=== PATIENT | male | born 1950 | race Caucasian/White ===

== ENCOUNTER → 2020-03-15 09:21 | Outpatient (CLI) | payer MEDICARE, SELFPAY | PROVIDERS: PCP Internal Medicine Geriatric Medicine; Visit Provider Specialist | DX: N39.0 Urinary tract infection, site not specified (principal); N40.3 Nodular prostate with lower urinary tract symptoms; R97.20 Elevated prostate specific antigen [PSA]; N52.9 Male erectile dysfunction, unspecified | CPT/HCPCS: 51798; 81002; 87086; 99214 ==

== ENCOUNTER → 2020-04-28 11:27 | Outpatient (CLI) | payer MEDICARE, SELFPAY | PROVIDERS: PCP Internal Medicine Geriatric Medicine; Visit Provider Specialist | DX: N39.0 Urinary tract infection, site not specified (principal); R97.20 Elevated prostate specific antigen [PSA]; N40.3 Nodular prostate with lower urinary tract symptoms; N52.9 Male erectile dysfunction, unspecified | CPT/HCPCS: 55700; 76872; 76942; 81002; 87086; 96372; J0694 ==

== ENCOUNTER → 2020-06-05 10:18 | Outpatient (CLI) | payer MEDICARE, SELFPAY ==
[2020-06-05 11:46] LABS: BUN Creatinine Ratio 23.2 (6-22); Blood Urea Nitrogen 23 mg/dL (9-20); Calcium 9.5 mg/dL (8.4-10.2); Carbon Dioxide 28 mmol/L (22-32); Chloride 103 mmol/L (98-107); Estimated Glomerular Filt Rate > 60.0 mL/min (>60); Glucose 99 mg/dL (80-110); HEMOLYSIS < 15 (0-50); Potassium 3.8 mmol/L (3.4-5.1); Sodium 137 mmol/L (137-145)
== END ==
PROVIDERS: PCP Internal Medicine Geriatric Medicine; Referring Provider Specialist; Visit Provider Specialist
DX: R94.4 Abnormal results of kidney function studies (principal)
CPT/HCPCS: 36415; 80048

== ENCOUNTER → 2020-06-07 12:42 | Outpatient (CLI) | payer MEDICARE, SELFPAY ==
--- NOTE | 2020-06-07 12:43 | DI.NM.S_ITS ---
PROCEDURE: [place] BONE SCAN WHOLE BODY RADIOPHARMACEUTICAL: 21.1 mCi Tc-99m MDP IV. INDICATIONS: Prostate cancer TECHNIQUE: Delayed whole-body scintigrams were obtained approximately 3-4 hours after intravenous injection of radiotracer. Anterior and posterior views were acquired from vertex to feet. Additional left and right oblique views of the pelvis and ribs were obtained. COMPARISON: [facility], [place], [place] BONE SCAN WHOLE BODY, 10/27/2019, 12:34. [facility], CT, CT BIOPSY PLEURA, 10/27/2019, 13:24. [facility], CT, CT ANGIO CHEST PE, 02/03/2020, 14:03. [facility], CT, CT CHEST ABD PEL W CON, 06/07/2020, 13:53. FINDINGS: There is tracer uptake involving the posterolateral left 7th rib. There is ill-defined sclerosis seen on the comparison CT from same day in this area. Additional areas of more subtle tracer uptake seen within the posterior left 7th rib and posterolateral 6th rib although an exact CT correlate is difficult to identify on the comparison study. There is also tracer uptake involving the region of the left sacroiliac joint, corresponding to sclerosis seen in the left ilium on the prior CT. Urinary contamination incidentally noted. Bilateral periarticular uptake at the knees and feet is probably degenerative. IMPRESSION: Multifocal area of left rib and left bony pelvis tracer activity, concerning for metastatic lesions. The rib tracer activity appears new since 10/27/19. Left bony pelvis tracer activity may have been present on the prior bone scan although more conspicuous on the current examination. Dictated by: Luis Manuel M.D. on 06/07/2020 at 16:59 Approved by: Luis Manuel M.D. on 06/07/2020 at 17:16
--- NOTE | 2020-06-07 13:33 | DI.CT.S_ITS ---
PROCEDURE: CT CHEST ABD PEL W CON INDICATIONS: Prostate cancer TECHNIQUE: After the administration of oral and intravenous contrast, 5 mm thick sections acquired from the lung apices to the symphysis. 5 mm coronal and sagittal reformats were performed, with additional 7 mm coronal MIP reformats through the lungs. For radiation dose reduction, the following was used: automated exposure control, adjustment of mA and/or kV according to patient size. COMPARISON: [facility], [place], [place] BONE SCAN WHOLE BODY, 10/27/2019, 12:34. [facility], CT, CT ANGIO CHEST, 10/15/2019, 12:58. [facility], CT, CT ABDOMEN PELVIS WITH CONTRAST, 10/17/2019, 16:24. [facility], CT, CT ANGIO CHEST PE, 02/03/2020, 14:03. [facility], CT, CT CHEST WITHOUT CONTRAST, 02/18/2020, 11:59. FINDINGS: Image quality: Excellent. CHEST: Lungs and pleura: There is a small right lower lobe 0.4 cm nodule on series 2, image 176 increased in size from the prior study. There also new subpleural nodules within the left lower lobe measuring 1.1 cm on image 198 and 0.6 cm on image 178. Dependent atelectasis and scarring are also demonstrated bilaterally. There is nodular thickening along the left major fissure measuring 0.5 cm on image 154 which appears similar to the prior study. No pleural effusions or pneumothorax. Central and peripheral airways appear patent and normal in caliber. Mediastinum: Heart size is normal. No pericardial effusion. There is a left chest wall dual lead pacemaker with leads extending into the right atrium and right ventricle. No mediastinal or hilar adenopathy by size criteria. Thoracic aorta and central pulmonary arteries are normal in size. Esophagus is normal in caliber. No hiatal hernia. Chest wall: No axillary or supraclavicular adenopathy by size criteria. Hypoattenuating left thyroid nodules are redemonstrated within the partially visualized thyroid, measuring up to approximately 1.1 cm. ABDOMEN: Solid organs: A small hypodense focus in the left hepatic lobe measuring up to 0.7 cm is too small to characterize but appears unchanged compared to the prior abdominal CT study and likely represents a cyst. There are calcifications within the liver likely related to old granulomas disease. The gallbladder appears within normal limits without calcified gallstones. Biliary system is non-dilated. Pancreas enhances normally. No peripancreatic fat stranding or fluid collections. No pancreatic duct dilatation. The spleen is normal in size. No adrenal nodules. Kidneys demonstrate no hydronephrosis. There is a nonobstructing stone redemonstrated within the left kidney, measuring up to 0.9 cm. Bilateral renal cysts are redemonstrated. Peritoneum and bowel: Bowel loops demonstrate normal wall thickness and caliber. No free fluid or air. Nodes and vessels: No retroperitoneal or mesenteric adenopathy by size criteria. Aorta and inferior vena cava are normal in size. Miscellaneous: No ventral hernias. PELVIS: Genitourinary: Bladder wall thickness is normal. The prostate is heterogeneous enlarged with internal foci of calcifications. No discrete extraprostatic mass extension. Miscellaneous: No inguinal hernias or adenopathy. There is a fat density mass partially visualized within the left rectus femorals muscle likely representing a lipoma. Bones: 2 indeterminate sclerotic lesions within the posterior left ilium measuring up to 1.6 cm and 2.5 cm appears similar in size compared to the prior abdominal CT. No vertebral body compression fractures. IMPRESSION: 1. New left lower lobe subpleural nodules and increase in size of a small right lower lobe nodule. The findings are nonspecific and the differential includes metastatic disease versus an infectious/inflammatory process. Recommend short-term follow-up to demonstrate stability or resolution. 2. Elsewhere, no definite evidence of new metastatic disease. 3. Stable sclerotic lesions in the posterior left ilium with no uptake identified on the prior bone scan. 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 4. Left nephrolithiasis without evidence of hydronephrosis. Dictated by: Houston Pichardo M.D. on 06/07/2020 at 18:23 Approved by: Houston Pichardo M.D. on 06/07/2020 at 18:41
== END ==
PROVIDERS: PCP Internal Medicine Geriatric Medicine; Referring Provider Specialist; Visit Provider Specialist
DX: C61 Malignant neoplasm of prostate (principal); R91.8 Other nonspecific abnormal finding of lung field; M89.9 Disorder of bone, unspecified; N20.0 Calculus of kidney; Z95.0 Presence of cardiac pacemaker
CPT/HCPCS: 71260; 74177; 78306; A9503; Q9967